=== PATIENT | female | born 1995 | race Caucasian/White ===

== ENCOUNTER 2018-11-09 19:13 | Emergency (ER) | payer OTHER ==
[2018-11-09 19:45] LABS: #Basophils 0.1 thou/uL (0.0-0.2); #Eosinphils 0.2 thou/uL (0.0-0.7); #Lymphocytes 3.5 thou/uL (1.20-3.40); #Monocytes 0.6 thou/uL (0.11-0.59); %Basophils 0.5 % (0.0-1.0); %Eosinophils 1.3 % (0.0-10.0); %Lymphocytes 26.2 % (21.0-51.0); %Monocytes 4.5 % (0.0-10.0); %Neutrophils 67.5 % (42.0-75.0); Mean Corpuscular HGB CONC 32.9 g/dL (32.0-36.0); Mean Corpuscular Hemoglobin 28.1 pg (27.0-31.0); Mean Corpuscular Volume 85.5 fL (78.0-98.0); Platelet Count 275 thou/uL (130-400); Red Blood Cell (RBC) Count 4.25 mill/uL (4.20-5.40); White Blood Cell (WBC) Count 13.3 thou/uL (4.8-10.8)
[2018-11-09 20:00] LABS: Bacteria/HPF 1+ HPF (None Seen); Bilirubin Negative (Negative); Blood, Urine Negative (Negative); Calcium Oxalate Crystals Rare HPF (None Seen); Clarity Turbid (Clear); Glucose, Urine (Dipstick) Normal (Negative); Leukocyte 500 Leu/uL (Negative); Nitrite Negative (Negative); Protein, Urine (Dipstick) 30 mg/dL (Neg-Trace)
--- NOTE | 2018-11-09 20:29 | ULT ---
LIMITED OB ULTRASOUND: 11/09/18 HISTORY: No movement on physical exam. FINDINGS: A single live intrauterine gestation is seen with measurements corresponding to an estimated gestatio nal age of 18 weeks, 4 days and MIKA at 04/08/19. The estimated weight measures 255 grams and 9 o unces. This corresponds to the 47th percentile by Hadlock criteria. measurements are as follows: BPD 4.29 cm 19 weeks 0 days HC 15.90 cm 18 weeks 5 days AC 13.52 cm 19 weeks 0 days FL 2.76 cm 18 weeks 3 days heart rate measures 162 beats per minute. Placenta is posteriorly located without evidence of p lacenta previa. Amniotic fluid is adequate. Cervical length measures 3.5 cm. movements were vis ualized during the examination. IMPRESSION: Single live intrauterine gestation of 18 weeks 4 days estimated gestational age and MIKA at 04/08/19. POS: [facility]
== END 2018-11-09 20:38 | disposition home or self-care (01) ==
LOC: ERS 19:13
DX: O23.42 Unspecified infection of urinary tract in pregnancy, second trimester (principal); Z3A.18 18 weeks gestation of pregnancy
CPT/HCPCS: 36415; 76815; 81003; 81015; 84702; 85025; 87086; 94760

== ENCOUNTER 2018-11-30 09:13 | Outpatient (CLI) | payer OTHER ==
--- NOTE | 2018-11-30 11:25 | ULT ---
OB ULTRASOUND: Date: 11/30/18 HISTORY: Anatomy, size and dates. FINDINGS: A single live intrauterine gestation is seen with measurements corresponding to an estimated gestatio nal age of 21 weeks 4 days and MIKA at 04/08/2019. The estimated weight measures 404 gm or 14 oz (19% by Hadlock criteria). measurements are as follows: BPD: 5.19 cm, 21 weeks 6 days HC: 19.44 cm, 21 weeks 5 days AC: 15.43 cm, 20 weeks 5 days FL: 3.66 cm, 21 weeks 5 days Cervical length measures 3.3 cm. heart rate measures 153 bpm. Placenta is posteriorly located w ithout evidence of placenta previa. ELLY measures 12.72 cm. A 3 vessel cord, cord insertion, kidneys, bladder, stomach, 4 chamber heart, lateral ventricles , cerebellum, spine, lips/nose, and upper/lower extremities are visualized. The lateral ventricles ap pear dilated. An anterior uterine fibroid is seen measuring 3.7 x 3.4 x 2.7 cm. The exam is limited by body habitus . IMPRESSION: 1. Single live intrauterine of 21 weeks 4 days estimated gestational age and MIKA at 2018. 2. Findings suggestive of ventriculomegaly. 3. Uterine fibroid. POS: [facility]
== END 2018-11-30 09:14 | disposition home or self-care (01) ==
LOC: BICULT 09:13
PROVIDERS: ATTEND Family Medicine
DX: O09.892 Supervision of other high risk pregnancies, second trimester (principal); Z3A.21 21 weeks gestation of pregnancy
CPT/HCPCS: 76805

== ENCOUNTER 2019-01-30 00:37 | Day surgery (SDC) | payer OTHER ==
[2019-01-30 01:03] VITALS: BP 131/58; TEMP 97.7; BMI 46.0
[2019-01-30] MEDS ORDERED: hydrALAZINE 20 MG/ML VIAL SLOW IVP PRN (01:14)
--- NOTE | 2019-01-30 01:17 | PDOC.LDHP ---
Labor and Delivery H&P Chief complaint: other (Lower pelvic pain) HPI: Patient of Dr lim CC: LPP 23 yo G1 at 30 weeks 3 days here for lower pelvic and back pain, no fevers, no VB, no LOF, good FM. Denies fevers. Recent DX with GDM...awaiting appointment for info. Review of Systems: complete ROS performed and as per HPI Current gestational age (weeks): 30 (3D) Due date: 04/07/19 Dating criteria: last menstrual period Grav: 1 Current complications: gestational diabetes Abnormal US findings: No Past Medical History: HX Bipolar/anxiety...no meds Current medications: pre-bharathi vitamins, other (Diclegis) Previous surgical history: none Allergies/Adverse Reactions: Allergies Allergy/AdvReac Type Severity Reaction Status Date / Time morphine Allergy Verified 01/30/19 01:04 Social history: none - Physical Exam Vital signs reviewed and normal: yes (131/50 14 85 afebrile) General: NAD Heart: RRR Lungs: CTAB Abdomen: gravid Extremeties: no edema FHT: category 1, variability present (none) - Assessment 30 weeks with LBP and lower pelvic pain, NOS. No evidence PTL, suspect discomforts of preg - Plan Plan: observation in L&D (I will check UA, CBC, CMP)
[2019-01-30 01:30] LABS: #Eosinphils 0.2 thou/uL (0.0-0.7); #Lymphocytes 3.5 thou/uL (1.20-3.40); #Monocytes 0.7 thou/uL (0.11-0.59); #Neutrophils 9.2 thou/uL (1.40-6.50); %Basophils 0.1 % (0.0-1.0); %Eosinophils 1.5 % (0.0-10.0); %Lymphocytes 25.8 % (21.0-51.0); %Monocytes 5.3 % (0.0-10.0); %Neutrophils 67.4 % (42.0-75.0); Hemoglobin 11.5 g/dL (12.0-16.0); Mean Corpuscular HGB CONC 34.1 g/dL (32.0-36.0); Mean Corpuscular Hemoglobin 28.8 pg (27.0-31.0); Mean Corpuscular Volume 84.5 fL (78.0-98.0); Platelet Count 257 thou/uL (130-400); RBC Distribution Width 12.6 % (11.5-14.5); Red Blood Cell (RBC) Count 3.99 mill/uL (4.20-5.40); White Blood Cell (WBC) Count 13.7 thou/uL (4.8-10.8)
[2019-01-30 01:36] LABS: Bilirubin Negative (Negative); Blood, Urine Negative (Negative); Clarity Turbid (Clear); Glucose, Urine (Dipstick) Normal (Negative); Leukocyte 75 Leu/uL (Negative); Nitrite Negative (Negative); Protein, Urine (Dipstick) 30 mg/dL (Neg-Trace)
[2019-01-30 01:38] LABS: Urine Culture Reflex No No
[2019-01-30 01:45] LABS: Bacteria/HPF 1+ HPF (None Seen); RBC/HPF 0-3 HPF (0-3); WBC/HPF 0-3 HPF (0-3)
[2019-01-30 01:46] LABS: Calcium Oxalate Crystals 1+ HPF (None Seen); Mucous/LPF 2+ LPF (<2+)
[2019-01-30 01:47] LABS: Squamous Epithelial 21-50 HPF (0-3)
[2019-01-30 01:50] LABS: ALT (SGPT) 10 U/L (8-55); AST (SGOT) 9 U/L (5-34); Albumin 3.2 g/dL (3.5-5.0); Alkaline Phosphatase 108 U/L (40-110); Anion Gap 13 mmol/L (10-20); BUN (Urea Nitrogen) 5 mg/dL (7.0-18.7); Bilirubin, Total Less than 0.2 mg/dL (0.2-1.2); Calc. Creatinine Clearance 265 mL/min (70-130); Calcium 9.3 mg/dL (7.8-10.44); Carbon Dioxide 23 mmol/L (22-29); Chloride 108 mmol/L (98-107); Estimated GFR-MDRD Greater than 90; Globulin 3.2 g/dL (2.4-3.5); Glucose 114 mg/dL (70-105); Potassium 3.5 mmol/L (3.5-5.1); Protein, Total 6.4 g/dL (6.0-8.3); Sodium 140 mmol/L (136-145)
--- NOTE | 2019-01-30 02:00 | PDOC.EVN ---
Event Note - Event Note Event Note: UA with poss UTI. Macrobid x 7 days
== END 2019-01-30 02:05 | disposition home or self-care (01) ==
LOC: L&D/OP 00:37
PROVIDERS: ATTEND Family Medicine
DX: O99.89 Other specified diseases and conditions complicating pregnancy, childbirth and the puerperium (principal); R10.2 Pelvic and perineal pain; M54.5 Low back pain; O24.419 Gestational diabetes mellitus in pregnancy, unspecified control; Z3A.30 30 weeks gestation of pregnancy; Z88.5 Allergy status to narcotic agent
CPT/HCPCS: 36415; 80053; 81001; 85025; 99283

== ENCOUNTER 2019-02-19 17:03 | Day surgery (SDC) | payer OTHER ==
[2019-02-19 17:31] VITALS: BP 129/60; TEMP 98.5
[2019-02-19 17:35] VITALS: BMI 48.6
[2019-02-19] MEDS ORDERED: hydrALAZINE 20 MG/ML VIAL SLOW IVP PRN (18:13)
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
--- NOTE | 2019-02-19 18:25 | PDOC.EVN ---
Event Note - Event Note Event Note: Sterile Speculum exam was negative for ROM, no pooling, no leakage with cough. SSE pos for florence vaginalis (thick white dsch adherent to gilbert, non-watery) Await test Order Diflucan 150mg
[2019-02-19 18:28] LABS: Amnisure Test No Membranes Rupture (No Rupture)
[2019-02-19 18:29] LABS: Amnisure Internal Control QC ACCEPTABLE (ACCEPTABLE)
[2019-02-19] MEDS ORDERED: Fluconazole 100 MG TAB PO SCH (18:30)
--- NOTE | 2019-02-19 19:55 | PDOC.EVN ---
Event Note - Event Note Event Note: Post DC note: Amnisure was negative As exam was also negative, plan was for DC home with F/U in 24 hrs
== END 2019-02-19 19:17 | disposition home or self-care (01) ==
LOC: L&D/OP 17:03
PROVIDERS: ATTEND Family Medicine
DX: O99.89 Other specified diseases and conditions complicating pregnancy, childbirth and the puerperium (principal); N89.8 Other specified noninflammatory disorders of vagina; O24.410 Gestational diabetes mellitus in pregnancy, diet controlled; Z3A.33 33 weeks gestation of pregnancy; Z88.5 Allergy status to narcotic agent; Z62.810 Personal history of physical and sexual abuse in childhood
CPT/HCPCS: 84112

== ENCOUNTER 2019-03-16 11:38 | Inpatient (IN) | payer OTHER ==
[2019-03-16 12:26] VITALS: BMI 48.6
--- NOTE | 2019-03-16 14:09 | ULT ---
Biophysical profile: 03/16/2019 COMPARISON: None HISTORY: Nonreassuring nonstress test in doctor's office TECHNIQUE: Limited sonographic assessment of the gravid uterus to perform a biophysical profile. FINDINGS: A single intrauterine gestation is present demonstrating a heart rate of 149 bpm. pre sentation is vertex. The amniotic fluid index is approximately 6.8 cm. There are 2 pockets of amniotic fluid documented by the emergency dispatcher that demonstrate a measurement greater than 2 cm. The emergency dispatcher reports a 2 out of 2 score for tone and movement. breathing scored 0 out of 2. IMPRESSION: 6 out of 8 biophysical profile score. Amniotic fluid index is 6.8 cm. The emergency dispatcher reported notifying the covering registered nurse, Lola, at the time of performing t he examination.
[2019-03-16 14:27] LABS: Hemoglobin 11.7 g/dL (12.0-16.0); Mean Corpuscular HGB CONC 33.3 g/dL (32.0-36.0); Mean Corpuscular Hemoglobin 27.7 pg (27.0-31.0); Mean Platelet Volume 7.8 fL (7.4-10.4); Platelet Count 240 thou/uL (130-400); RBC Distribution Width 13.1 % (11.5-14.5); Red Blood Cell (RBC) Count 4.23 mill/uL (4.20-5.40); White Blood Cell (WBC) Count 10.9 thou/uL (4.8-10.8)
[2019-03-16 14:47] LABS: ALT (SGPT) 10 U/L (8-55); AST (SGOT) 15 U/L (5-34); Albumin 3.1 g/dL (3.5-5.0); Alkaline Phosphatase 149 U/L (40-110); Anion Gap 12 mmol/L (10-20); BUN (Urea Nitrogen) 8 mg/dL (7.0-18.7); Bilirubin, Total 0.2 mg/dL (0.2-1.2); Calc. Creatinine Clearance 252 mL/min (70-130); Calcium 9.4 mg/dL (7.8-10.44); Carbon Dioxide 24 mmol/L (22-29); Chloride 106 mmol/L (98-107); Estimated GFR-MDRD Greater than 90; Globulin 3.3 g/dL (2.4-3.5); Glucose 93 mg/dL (70-105); Protein, Total 6.4 g/dL (6.0-8.3); Sodium 138 mmol/L (136-145)
[2019-03-16] MEDS ORDERED: Ibuprofen 800 MG TAB PO PRN (18:13)
[2019-03-16] MEDS ORDERED: hydrALAZINE 20 MG/ML VIAL SLOW IVP PRN (18:13)
[2019-03-16] MEDS ORDERED: Misoprostol 200 MCG TAB PR PRN (18:13)
[2019-03-16] MEDS ORDERED: Lidocaine 1% (PF) 30 ML VIAL SC PRN (18:13)
[2019-03-16] MEDS ORDERED: NS / Oxytocin 40 units/1000ml 1,000 ML IV PRN (18:13)
[2019-03-16] MEDS ORDERED: Ondansetron PF 4 MG/2 ML Vial IVP PRN (18:13)
[2019-03-16] MEDS ORDERED: Methylergonovine 0.2 MG/ML VIAL IM PRN (18:13)
[2019-03-16] MEDS ORDERED: HYDROcodone/Acetaminophen 5/325 mg Tablet PO PRN (18:13)
[2019-03-16] MEDS ORDERED: Butorphanol Tartrate 1 MG/ML VIAL SLOW IVP PRN (18:13)
[2019-03-16] MEDS ORDERED: Carboprost 250 MCG/ML AMP IM PRN (18:13)
[2019-03-16] MEDS ORDERED: Diphenoxylate HCl/Atropine Tablet PO PRN (18:13)
[2019-03-16] MEDS ORDERED: Promethazine HCl 25 MG/ML VIAL IM PRN (18:13)
[2019-03-16] MEDS ORDERED: NS w/ Oxytocin 10 units 500 ML IV SCH (18:15)
[2019-03-16] MEDS ORDERED: Penicillin G Potassium 5 MILL.UNITS in Sodium Chloride 0.9% 100 ML IVPB SCH (18:15)
[2019-03-16] MEDS: Betamet Acet/Betamet Na Ph 30 MG/5 ML VIAL IM SCH (18:52)
[2019-03-16] MEDS ORDERED: Penicillin G 2.5 MILL.units 2.5 MILL.UNITS in Premix Bag 1 BAG IVPB SCH (21:00)
[2019-03-17] MEDS: Lactated Ringer's 1,000 ML IV SCH (00:45)
[2019-03-17] MEDS: Misoprostol 100 MCG TAB PO SCH ×4 (01:00→13:56)
[2019-03-17 02:03] LABS: Glucose 145 mg/dL (70-105)
[2019-03-17 02:26] LABS: Hep B Surf Ag Non-Reactive S/CO (NonReactive)
[2019-03-17 10:35] LABS: Syphilis Antibody Nonreactive (Nonreactive); Syphilis Antibody Index 0.03 S/CO (<1.00 Non-Reactive)
[2019-03-17] MEDS ORDERED: Misoprostol 100 MCG TAB ONE (13:53)
[2019-03-17] MEDS ORDERED: HumaLOG 300 UNITS/3 ML VIAL SC SCH (21:00)
[2019-03-18] MEDS ORDERED: Misoprostol 100 MCG TAB ONE (02:08)
[2019-03-18] MEDS: NS w/ Oxytocin 10 units 500 ML IV SCH ×2 (07:25→13:18)
[2019-03-18] MEDS ORDERED: hydrALAZINE 20 MG/ML VIAL ONE (09:08)
[2019-03-18] MEDS ORDERED: hydrALAZINE 20 MG/ML VIAL SLOW IVP SCH ×2 (09:45)
[2019-03-18] MEDS ORDERED: Bicitra 30 ML UDCUP ONE (10:35)
[2019-03-18] MEDS ORDERED: CEFAZOLIN 3 GM in Premix Bag 1 BAG IVPB SCH (10:45)
[2019-03-18] MEDS ORDERED: Bicitra 30 ML UDCUP PO SCH (10:45)
[2019-03-18] MEDS ORDERED: Azithromycin 500 MG in Sodium Chloride 0.9% 250 ML 250 ML IVPB SCH (10:45)
[2019-03-18] MEDS ORDERED: Azithromycin 500 MG VIAL ONE (10:49)
[2019-03-18] MEDS ORDERED: Morphine 4 MG/ML VIAL ONE (10:56)
[2019-03-18] MEDS ORDERED: CEFAZOLIN 3 GM in Sodium Chloride 0.9% 100 ML IVPB SCH (11:00)
[2019-03-18] MEDS ORDERED: Fentanyl 100 MCG/2 ML VIAL ONE (11:06)
[2019-03-18] MEDS ORDERED: PHENYLEPHRINE-NS 100 MCG/ML 10 ML SYRINGE ONE (11:07)
[2019-03-18] MEDS ORDERED: Oxytocin 10 UNITS/ML VIAL ONE ×2 (11:07→11:36)
[2019-03-18] MEDS ORDERED: Ondansetron PF 4 MG/2 ML Vial ONE (11:07)
[2019-03-18] MEDS ORDERED: Ketorolac Tromethamine 30 MG/ML VIAL ONE (11:07)
[2019-03-18] MEDS ORDERED: ePHEDrine/0.9% NaCl/PF SYRINGE 50 mg/10 ml ONE (11:07)
[2019-03-18] MEDS ORDERED: ceFAZolin 1 GM/D5W 1 GM in Premix Bag 1 BAG IVPB SCH (11:30)
[2019-03-18] MEDS ORDERED: Ketorolac Tromethamine 30 MG/ML VIAL IVP PRN (12:26)
[2019-03-18] MEDS ORDERED: Promethazine HCl 25 MG SUPP PR PRN (12:26)
[2019-03-18] MEDS ORDERED: Promethazine HCl 25 MG/ML VIAL IM PRN ×2 (12:26→15:25)
[2019-03-18] MEDS ORDERED: HYDROmorphone 2 MG/ML VIAL SLOW IVP PRN (12:26)
[2019-03-18] MEDS ORDERED: diphenhydrAMINE 50 MG/ML VIAL IVP PRN (12:26)
[2019-03-18] MEDS ORDERED: Naloxone HCl 0.4 mg/ml Vial IVP PRN ×2 (12:26)
[2019-03-18] MEDS ORDERED: Ondansetron PF 4 MG/2 ML Vial IVP PRN ×2 (12:26→15:25)
[2019-03-18] MEDS ORDERED: Ondansetron HCl/PF 4 MG/2 ML Vial IVP PRN (12:26)
[2019-03-18] MEDS ORDERED: Naloxone HCl 0.4 mg/ml Vial IV PRN (12:26)
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
[2019-03-18] MEDS ORDERED: Communication Order-Pharmacy FS PRN (12:30)
[2019-03-18] MEDS: Meperidine HCl/PF 25 MG/ML VIAL SLOW IVP PRN ×2 (13:28→14:25)
[2019-03-18] MEDS ORDERED: Meperidine HCl/PF 25 MG/ML VIAL ONE ×2 (13:28→14:22)
[2019-03-18] MEDS ORDERED: Simethicone Chewable 80 MG TAB PO PRN (15:25)
[2019-03-18] MEDS ORDERED: HYDROcodone/Acetaminophen 5/325 mg Tablet PO PRN (15:25)
[2019-03-18] MEDS ORDERED: NS / Oxytocin 40 units/1000ml 1,000 ML IV SCH (15:25)
[2019-03-18] MEDS ORDERED: Lanolin Ointment 7 GM TUBE TOP PRN (15:25)
[2019-03-18] MEDS ORDERED: Meperidine HCl/PF 25 MG/ML VIAL IM PRN (15:25)
[2019-03-18] MEDS ORDERED: diphenhydrAMINE 25 MG CAP PO PRN (15:25)
[2019-03-18] MEDS ORDERED: Bisacodyl 10 MG SUPP PR PRN (15:25)
[2019-03-18] MEDS ORDERED: hydrALAZINE 20 MG/ML VIAL SLOW IVP PRN (15:25)
[2019-03-18] MEDS: Ketorolac Tromethamine 30 MG/ML VIAL IVP SCH ×2 (16:30→22:14)
[2019-03-18] MEDS: Docusate Calcium (SURFAK) 240 MG CAP PO SCH (22:00)
[2019-03-18] MEDS: Ferrous Sulfate 325 MG TAB PO SCH (22:00)
[2019-03-19] MEDS: HYDROcodone/Acetaminophen 5/325 mg Tablet PO PRN ×4 (00:32→21:44)
[2019-03-19] MEDS ORDERED: Sodium Chloride 0.9% 10 ML ONE (04:05)
[2019-03-19] MEDS: Ketorolac Tromethamine 30 MG/ML VIAL IVP SCH ×4 (04:14→10:43)
[2019-03-19 04:36] LABS: Hemoglobin 11.2 g/dL (12.0-16.0); Mean Corpuscular HGB CONC 33.5 g/dL (32.0-36.0); Mean Corpuscular Hemoglobin 27.9 pg (27.0-31.0); Mean Corpuscular Volume 83.3 fL (78.0-98.0); Mean Platelet Volume 7.7 fL (7.4-10.4); Platelet Count 227 thou/uL (130-400); RBC Distribution Width 13.3 % (11.5-14.5); Red Blood Cell (RBC) Count 4.02 mill/uL (4.20-5.40)
[2019-03-19] MEDS: Misoprostol 100 MCG TAB PO SCH ×2 (07:38→07:39)
[2019-03-19] MEDS: Betamet Acet/Betamet Na Ph 30 MG/5 ML VIAL IM SCH (07:42)
[2019-03-19] MEDS: Lactated Ringer's 1,000 ML IV SCH ×2 (07:44→07:45)
[2019-03-19] MEDS: Docusate Calcium (SURFAK) 240 MG CAP PO SCH ×2 (09:21→21:39)
[2019-03-19] MEDS: Prenatal Vitamin 1 TAB PO SCH (09:21)
[2019-03-19] MEDS: Ferrous Sulfate 325 MG TAB PO SCH ×2 (09:26→21:38)
[2019-03-19] MEDS ORDERED: Adacel (T-DAP) 0.5 ML SYRINGE IM ONE (15:25)
[2019-03-19] MEDS: Ibuprofen 800 MG TAB PO SCH ×2 (17:38→21:39)
[2019-03-20] MEDS: Ibuprofen 800 MG TAB PO SCH ×3 (00:45→08:39)
[2019-03-20] MEDS: HYDROcodone/Acetaminophen 5/325 mg Tablet PO PRN (05:26)
[2019-03-20 07:55] VITALS: BP 140/68; TEMP 97.9
[2019-03-20] MEDS: Ferrous Sulfate 325 MG TAB PO SCH (08:08)
[2019-03-20] MEDS: Docusate Calcium (SURFAK) 240 MG CAP PO SCH (08:40)
[2019-03-20] MEDS: Prenatal Vitamin 1 TAB PO SCH (08:40)
== END 2019-03-20 14:40 | disposition home or self-care (01) | DRG 788 ==
LOC: L&D/OP 11:38 → L&D 03-17 01:41 → 3SW 03-18 15:10
PROVIDERS: ADMIT Family Medicine; ATTEND Family Medicine
PROC: 10D00Z1 Extraction of Products of Conception, Low, Open Approach (ICD-10-PCS; principal; 2019-03-18)
DX: O13.4 Gestational [pregnancy-induced] hypertension without significant proteinuria, complicating childbirth (principal); Z3A.37 37 weeks gestation of pregnancy; Z37.0 Single live birth; O24.429 Gestational diabetes mellitus in childbirth, unspecified control; O99.214 Obesity complicating childbirth; F43.10 Post-traumatic stress disorder, unspecified; O34.219 Maternal care for unspecified type scar from previous cesarean delivery; O61.9 Failed induction of labor, unspecified; E66.01 Morbid (severe) obesity due to excess calories; O99.344 Other mental disorders complicating childbirth
CPT/HCPCS: 36415; 36416; 51702; 76819; 80053; 82570; 82947; 84156; 85027; 86780; 86850; 86900; 86901; 87340; 88307; 99285; J0360; J0456; J0690; J0702; J1885; J2175; J2270; J2405; J2590; J3010

== ENCOUNTER 2020-04-03 16:48 | Emergency (ER) | payer OTHER, SELFPAY ==
[~2020-04-03 16:48] MED LIST: Iopamidol-370 76% 500 ML 1 ML ONE
[2020-04-03 18:27] LABS: #Basophils 0.1 thou/uL (0.0-0.2); #Eosinphils 0.1 thou/uL (0.0-0.7); #Lymphocytes 2.6 thou/uL (1.20-3.40); #Monocytes 0.5 thou/uL (0.11-0.59); #Neutrophils 8.4 thou/uL (1.40-6.50); %Basophils 0.8 % (0.0-1.0); %Eosinophils 1.2 % (0.0-10.0); %Monocytes 4.2 % (0.0-10.0); %Neutrophils 71.8 % (42.0-75.0); Hemoglobin 13.9 g/dL (12.0-16.0); Mean Corpuscular HGB CONC 33.5 g/dL (32.0-36.0); Mean Corpuscular Hemoglobin 28.3 pg (27.0-31.0); Mean Corpuscular Volume 84.4 fL (78.0-98.0); Mean Platelet Volume 6.8 fL (7.4-10.4); Platelet Count 313 thou/uL (130-400); RBC Distribution Width 12.3 % (11.5-14.5); Red Blood Cell (RBC) Count 4.93 mill/uL (4.20-5.40); White Blood Cell (WBC) Count 11.7 thou/uL (4.8-10.8)
[2020-04-03 18:46] LABS: ALT (SGPT) 23 U/L (8-55); AST (SGOT) 18 U/L (5-34); Albumin 4.2 g/dL (3.5-5.0); Alkaline Phosphatase 96 U/L (40-110); Anion Gap 14 mmol/L (10-20); BUN (Urea Nitrogen) 11 mg/dL (7.0-18.7); Bilirubin, Total 0.3 mg/dL (0.2-1.2); Calc. Creatinine Clearance 0 mL/min (70-130); Calcium 8.9 mg/dL (7.8-10.44); Carbon Dioxide 25 mmol/L (22-29); Chloride 104 mmol/L (98-107); Estimated GFR-MDRD 85; Globulin 3.4 g/dL (2.4-3.5); Glucose 112 mg/dL (70-105); Potassium 3.6 mmol/L (3.5-5.1); Protein, Total 7.6 g/dL (6.0-8.3); Sodium 139 mmol/L (136-145)
[2020-04-03 19:34] LABS: Bilirubin Small (Negative); Blood, Urine Large (Negative); Glucose, Urine (Dipstick) Negative (Negative); Ketone, Urine Trace mg/dL (Negative); Leukocyte Negative (Negative); Nitrite Negative (Negative); Protein, Urine (Dipstick) 30 mg/dL (Neg-Trace); Specific Gravity, Urine 1.025 (1.005-1.030); Urobilinogen 0.2 mg/dL (Less than 2)
[2020-04-03 19:39] LABS: Clarity Cloudy (Clear); Pregnancy Test - Urine (BHCG) Negative (Negative); Pregu Control Background? CLEAR/WHITE (CLR/WHITE); Pregu Control Bar Appear? YES (CONTROL BAR); Specific Gravity 1.025 (1.002-1.036)
[2020-04-03 19:43] LABS: Bacteria/HPF None Seen HPF (None Seen); RBC/HPF Greater than 50 HPF (0-3); WBC/HPF 0-3 HPF (0-3)
[2020-04-03] MEDS ORDERED: Ondansetron PF 4 MG/2 ML Vial ONE ×2 (20:05→20:06)
[2020-04-03] MEDS ORDERED: Fentanyl 100 MCG/2 ML VIAL ONE ×2 (20:05→22:06)
[2020-04-03] MEDS ORDERED: Ketorolac Tromethamine 30 MG/ML VIAL ONE (20:05)
--- NOTE | 2020-04-03 21:16 | CT ---
CT ABDOMEN AND PELVIS WITH CONTRAST: 04/03/20 HISTORY: Acute onset of generalized abdominal pain. TECHNIQUE: Multiple contiguous axial images were obtained in a CT of the abdomen and pelvis with contrast. Sagit negrita and coronal reformats were performed. FINDINGS: There is a delay in the left nephrogram compared to the right. There is mild left hydronephrosis. Th ere is a 3 mm calcification in the proximal aspect of the left ureter as a cause for this obstruction . No other residual calcifications are seen in either kidney. No calcifications are seen in the right ureter and there is no right hydronephrosis. The liver, gallbladder, adrenal glands, spleen, and pancreas are unremarkable. No free air, free flui d, or stranding changes are seen in the abdomen or pelvis. The large and small bowel are unremarkable. The appendix is normal. The reproductive organs are unrem arkable. No abdominal or pelvic lymphadenopathy are appreciated. The osseous structures, visualized inferior thorax and abdominal wall soft tissues are unremarkable. IMPRESSION: Proximal left ureteral calcification with mild left sided hydronephrosis. POS: [facility]
== END 2020-04-03 22:25 | disposition home or self-care (01) ==
LOC: ERS 16:48
DX: N13.2 Hydronephrosis with renal and ureteral calculous obstruction (principal); I10 Essential (primary) hypertension
CPT/HCPCS: 36415; 74177; 80053; 81003; 81015; 81025; 85025; 96374; 96375; 96376; J1885; J2405; J3010; Q9967

== ENCOUNTER 2023-02-07 13:26 | Emergency (ER) | payer BC ==
[~2023-02-07 13:26] MED LIST changes: -Iopamidol-370 76% 500 ML 1 ML ONE; +Iopamidol-370 76% 500 ML MDV (1 ML CHARGE) ONE
[2023-02-07 13:58] LABS: Bacteria/HPF 1+ HPF (None Seen); Bilirubin Negative (Negative); Blood, Urine 3+ (Negative); CAUTI Indications for Culture Pelvic or flank pain; Clarity Turbid (Clear); Glucose, Urine (Dipstick) Normal (Negative); Ketone, Urine Negative (Negative); Leukocyte 250 Leu/uL (Negative); Nitrite Negative (Negative); Protein, Urine (Dipstick) 20 mg/dL (Neg-Trace); RBC/HPF Greater than 50 HPF (0-3); Specific Gravity, Urine 1.031 (1.002-1.036); Urobilinogen Normal mg/dL (Less than 2)
[2023-02-07 13:59] LABS: Urine Culture Reflex No No
[2023-02-07 14:14] LABS: #Eosinphils 0.1 thou/uL (0.0-0.7); #Monocytes 0.7 thou/uL (0.11-0.59); #Neutrophils 8.8 thou/uL (1.40-6.50); %Basophils 0.3 % (0.0-1.0); %Eosinophils 0.7 % (0.0-10.0); %Lymphocytes 22.6 % (21.0-51.0); %Monocytes 5.8 % (0.0-10.0); Hematocrit 39.8 % (36.0-47.0); Hemoglobin 13.3 g/dL (12.0-16.0); Mean Corpuscular HGB CONC 33.4 g/dL (32.0-36.0); Mean Corpuscular Hemoglobin 28.4 pg (27.0-31.0); Mean Platelet Volume 9.2 fL (7.4-10.4); Platelet Count 302 10x3/uL (130-400); RBC Distribution Width 13.3 % (11.5-14.5); Red Blood Cell (RBC) Count 4.68 mill/uL (4.20-5.40); White Blood Cell (WBC) Count 12.6 10x3/uL (4.8-10.8)
[2023-02-07] MEDS ORDERED: Ondansetron PF 4 MG/2 ML Vial ONE (14:31)
[2023-02-07] MEDS ORDERED: Metoclopramide HCl 10 MG/2 ML VIAL ONE (14:34)
[2023-02-07 14:38] LABS: ALT (SGPT) 25 U/L (8-55); AST (SGOT) 11 U/L (5-34); Albumin 4.1 g/dL (3.5-5.0); Alkaline Phosphatase 76 U/L (40-110); Anion Gap 16 mmol/L (10-20); BUN (Urea Nitrogen) 16 mg/dL (7.0-18.7); Bilirubin, Total 0.3 mg/dL (0.2-1.2); Calc. Creatinine Clearance 0 mL/min (70-130); Calcium 9.5 mg/dL (7.8-10.44); Carbon Dioxide 21 mmol/L (22-29); Chloride 106 mmol/L (98-107); Estimated GFR 90; Globulin 3.2 g/dL (2.4-3.5); Glucose 167 mg/dL (70-105); Potassium 3.6 mmol/L (3.5-5.1); Protein, Total 7.3 g/dL (6.0-8.3); Sodium 139 mmol/L (136-145)
[2023-02-07 15:02] LABS: Pregnancy Test - Urine (BHCG) Negative (Negative); Pregu Control Background? CLEAR/WHITE (CLR/WHITE); Pregu Control Bar Appear? YES (CONTROL BAR); Specific Gravity 1.031 (1.002-1.036)
[2023-02-07] MEDS ORDERED: Ketorolac Tromethamine 30 MG/ML VIAL ONE (15:16)
[2023-02-07] MEDS ORDERED: fentaNYL 50 mcg/mL 1 mL Vial ONE (15:16)
== END 2023-02-07 16:17 | disposition home or self-care (01) ==
LOC: ERS 13:26
DX: N13.2 Hydronephrosis with renal and ureteral calculous obstruction (principal)
CPT/HCPCS: 36415; 74177; 80053; 81001; 81025; 85025; 96365; 96375; J1885; J2405; J2765; J3010; Q9967